=== PATIENT | male | born 2005 | race Caucasian/White ===

== ENCOUNTER 2023-02-17 00:22 | Emergency (ER) | payer BC ==
[~2023-02-17] VITALS: Ht 172.7 cm; Wt 72.7 kg
[2023-02-17 04:10] VITALS: BP 150/81; PULSE 79; TEMP 98.4
== END 2023-02-17 04:10 | disposition short-term general hospital (02) ==
LOC: COL.ER 00:22
DX: S05.11XA Contusion of eyeball and orbital tissues, right eye, initial encounter (principal); W20.8XXA Other cause of strike by thrown, projected or falling object, initial encounter